=== PATIENT | female | born 1970 | race Hispanic/Latino ===

== ENCOUNTER → 2022-02-03 08:37 | Outpatient (CLI) | payer BC, SELFPAY ==
--- NOTE | 2022-02-03 | DI.MG.S_ITS ---
UNILATERAL LEFT DIGITAL DIAGNOSTIC MAMMOGRAM 3D/2D WITH ADDITIONAL VIEWS: 02/03/2022 CLINICAL: Additional evaluation requested from prior study. Comparison is made to exams dated: 12/14/2021 mammogram, 05/11/2017 mammogram, and 06/20/2014 mammogram - [facility]. There are scattered fibroglandular elements in left breast. There is a focal asymmetry in the left breast at 6 o'clock middle depth. This is less prominent. No other significant masses or calcifications are seen in the breast. IMPRESSION: INCOMPLETE: NEEDS ADDITIONAL IMAGING EVALUATION The focal asymmetry in the left breast is indeterminate. A targeted ultrasound is recommended and will immediately follow. This exam was interpreted at Station ID: [id number]. NOTE: For mammograms, a report in lay terms will be sent to the patient. Approximately 15% of breast malignancies will not be visualized mammographically. In the management of a palpable breast mass, a negative mammogram must not discourage biopsy of a clinically suspicious lesion. Electronically Signed By: Jose Spencer M.D. slc/:02/03/2022 09:37:20 ACR BI-RADS Category 0: Incomplete [id number]
--- NOTE | 2022-02-03 | DI.US.S_ITS ---
LIMITED ULTRASOUND OF LEFT BREAST AND AXILLA: 02/03/2022 CLINICAL: Patient returns today to evaluate a focal asymmetry in the left breast. Comparison is made to exams dated: 02/03/2022 mammogram - [facility], 12/14/2021 mammogram, 05/11/2017 mammogram, and 06/20/2014 mammogram - [facility]. Color flow and real-time ultrasound of the left breast axilla were performed. Cortés scale images of the real-time examination were reviewed. There is a 1 cm x 0.7 cm x 0.5 cm oval cyst in the left breast at 5 o'clock middle depth 4 cm from the nipple. This oval cyst is hypoechoic with internal echoes. This correlates with mammography findings. Color flow imaging demonstrates that there is no vascularity present. No significant abnormalities were seen sonographically in the left axilla. IMPRESSION: PROBABLY BENIGN The 1 cm oval cyst in the left breast is consistent with a complicated cyst and is probably benign. A follow-up ultrasound in 6 months is recommended to demonstrate stability. Exam findings were conveyed to the patient. This exam was interpreted at Station ID: [id number]. Electronically Signed By: Jose Spencer M.D. slc/:02/03/2022 09:39:00 letter sent: Followup Recommended Ultrasound BI-RADS: 3 Probably benign
== END ==
PROVIDERS: Referring Provider Obstetrics & Gynecology; Visit Provider Obstetrics & Gynecology
DX: R92.8 Other abnormal and inconclusive findings on diagnostic imaging of breast (principal); N60.02 Solitary cyst of left breast
CPT/HCPCS: 76642; 77065; G0279

== ENCOUNTER → 2022-10-27 08:27 | Outpatient (CLI) | payer OTHER, SELFPAY ==
--- NOTE | 2022-10-27 | DI.US.S_ITS ---
LIMITED ULTRASOUND OF LEFT BREAST: 10/27/2022 CLINICAL: 6 month follow-up of cysts. Comparison is made to exams dated: 02/03/2022 ultrasound, 02/03/2022 mammogram - [facility], 12/14/2021 mammogram, and 05/11/2017 mammogram - [facility]. Color flow and real-time ultrasound of the left breast 5 o'clock region were performed. Cortés scale images of the real-time examination were reviewed. There is a stable benign 1 cm x 0.7 cm x 0.5 cm oval cyst in the left breast at 5 o'clock middle depth 4 cm from the nipple. This oval cyst is hypoechoic with internal echoes. This correlates with mammography findings. Color flow imaging demonstrates that there is no vascularity present. No significant abnormalities were seen sonographically in the left breast. IMPRESSION: BENIGN There is no sonographic evidence of malignancy. The stable 1 cm x 0.7 cm x 0.5 cm oval cyst in the left breast is consistent with a complicated cyst and is benign. Return to annual mammogram screening schedule is recommended. This exam was interpreted at Station ID: [id number]. Electronically Signed By: Erik Torres M.D., jr/naomi:10/28/2022 11:20:51 letter sent: Normal Exam Ultrasound BI-RADS: 2 Benign
== END ==
PROVIDERS: Referring Provider Obstetrics & Gynecology; Visit Provider Obstetrics & Gynecology
DX: R92.8 Other abnormal and inconclusive findings on diagnostic imaging of breast (principal); N60.02 Solitary cyst of left breast
CPT/HCPCS: 76642